=== PATIENT | male | born 1955 | race Caucasian/White ===

== ENCOUNTER 2023-09-27 19:35 | Emergency (ER) | payer MEDICARE, OTHER ==
[~2023-09-27] VITALS: Ht 185.4 cm; Wt 97.7 kg
[2023-09-27 19:56] VITALS: TEMP 98.4
[2023-09-27 21:26] LABS: APPEARANCE,URINE HAZY (CLEAR); BILIRUBIN,URINE NEGATIVE (NEGATIVE); COLOR,URINE YELLOW (YELLOW); GLUCOSE, URINE (UA) NEGATIVE (NEGATIVE); KETONES,URINE NEGATIVE (NEGATIVE); LEUKOCYTE ESTERASE ,URINE LARGE (NEGATIVE); OCCULT BLOOD,URINE NEGATIVE (NEGATIVE); PROTEIN,URINE TRACE mg/dL (NEGATIVE); SPECIFIC GRAVITIY, URINE 1.018 (1.003-1.030); UROBILINOGEN,URINE <=1.0 mg/dL (<=1.0)
[2023-09-27 21:35] LABS: NITRATE,URINE POSITIVE (NEGATIVE); RBC,URINE 0-2 /HPF (0-2); WBC,URINE 26-50 /HPF (0-5)
[2023-09-27 21:36] LABS: BACTERIA,URINE Many /HPF (None Seen); SQUAMOUS EPITHELIAL CELL,UR Rare /LPF (None Seen)
[2023-09-28 01:45] VITALS: BP 132/79; PULSE 79; RESP 18
== END 2023-09-28 03:33 | disposition home or self-care (01) ==
LOC: EMS 19:38
DX: T83.091A Other mechanical complication of indwelling urethral catheter, initial encounter (principal); N39.0 Urinary tract infection, site not specified; F41.9 Anxiety disorder, unspecified; J44.9 Chronic obstructive pulmonary disease, unspecified; F32.A Depression, unspecified; F17.210 Nicotine dependence, cigarettes, uncomplicated; Z98.890 Other specified postprocedural states
CPT/HCPCS: 51702; 81001; 87086; 87186; 99284; Z7502